=== PATIENT | female | born 1955 ===

== ENCOUNTER 2023-11-05 09:10 | Inpatient (IN) | payer OTHER ==
[~2023-11-05] VITALS: Ht 167.6 cm; Wt 102.1 kg
[2023-11-05] MEDS ORDERED: GRALISE600 MG (09:49)
[2023-11-05] MEDS ORDERED: TRICOR145 MG PO (09:49)
[2023-11-05 10:44] LABS: PH,URINE 5.5 (5.0-8.0); URINE APPEARANCE Clear; URINE BILIRRUBIN Negative (NEGATIVE); URINE BLOOD Negative; URINE COLOR Yellow; URINE GLUCOSE Negative (NEGATIVE); URINE LEUKOCYTE Trace; URINE NITRATE Negative; URINE PROTEIN Negative (NEGATIVE); URINE UROBILINOGEN 0.2 E.U./dl
[2023-11-05 10:48] LABS: HEMATOCRIT 40.3 % (36.0-45.00); HEMOGLOBIN 13.7 g/dL (12.0-15.00); MEAN CELL VOLUME 87.4 fL (80.00-100.00); MEAN CORPUSCULAR HEMOGLOBIN 29.8 pg (27.00-32.0); PLATELET COUNT 280 K/uL (150-450); RED BLOOD COUNT 4.61 M/uL (4.00-6.00)
[2023-11-05 10:49] LABS: URINE BACTERIA 1390.8 uL (0.0-1933); URINE EPITHELIAL CELLS 61.6 uL (0.0-38.8); URINE RBC 6.6 uL (0.0-20.8); URINE WBC 25.8 uL (0.0-23.2)
[2023-11-05 11:07] LABS: INR 0.99; PARTIAL THROMBOPLASTIN TIME 29.2 SECONDS (22.0-34.0); PROTHROMBIN TIME 10.4 SECONDS (9.0-11.5)
[2023-11-05 11:08] LABS: CALCIUM 10.8 mg/dL (8.5-10.1); CREATININE SERUM 0.76 mg/dL (0.55-1.02); GFR 75.23; POTASSIUM 4.8 mEq/L (3.5-5.1)
[2023-11-15 14:25] LABS: HEMOGLOBIN 12.5 g/dL (12.0-15.00); RED BLOOD COUNT 4.34 M/uL (4.00-6.00)
[2023-11-16 07:16] LABS: HEMATOCRIT 33.9 % (36.0-45.00); HEMOGLOBIN 11.5 g/dL (12.0-15.00); MEAN CELL VOLUME 87.8 fL (80.00-100.00); MEAN CORPUSCULAR HEMOGLOBIN 29.8 pg (27.00-32.0); PLATELET COUNT 218 K/uL (150-450); RED BLOOD COUNT 3.86 M/uL (4.00-6.00); RED CELL DISTRIBUTION WIDTH 13.9 % (11.5-14.5)
[2023-11-17 07:06] LABS: HEMATOCRIT 33.1 % (36.0-45.00); HEMOGLOBIN 11.2 g/dL (12.0-15.00); MEAN CELL VOLUME 86.2 fL (80.00-100.00); MEAN CORPUSCULAR HEMOGLOBIN 29.2 pg (27.00-32.0); MEAN CORPUSCULAR HGB CONC 33.9 g/dl (32.0-36.0); PLATELET COUNT 207 K/uL (150-450); RED BLOOD COUNT 3.84 M/uL (4.00-6.00); RED CELL DISTRIBUTION WIDTH 14.2 % (11.5-14.5)
[2023-11-17] MEDS ORDERED: XARELTO10 MG PO (08:28)
[2023-11-17] MEDS ORDERED: BACTRIM DS TAB1 EACH PO (08:28)
[2023-11-17] MEDS ORDERED: OXYC1TAB9 PO (08:28)
[2023-11-17] MEDS ORDERED: INTEGRA PLUS C1 EACH PO (08:28)
== END 2023-11-17 16:20 | DRG 470 ==
LOC: O/R 11-15 05:00 → SURH 11-15 09:15 → SURG 11-15 11:53
PROVIDERS: ADMIT Orthopaedic Surgery Sports Medicine; ATTEND Orthopaedic Surgery Sports Medicine
PROC: 0SRD0J9 Replacement of Left Knee Joint with Synthetic Substitute, Cemented, Open Approach (ICD-10-PCS; principal; 2023-11-15 10:30)
DX: M17.12 Unilateral primary osteoarthritis, left knee (principal)